=== PATIENT | female | born 1995 | race Caucasian/White ===

== ENCOUNTER 2017-01-22 14:06 | Emergency (ER) | payer OTHER | END 2017-01-22 15:04 | disposition home or self-care (01) | LOC: SCSER 14:06 | DX: O9A.212 Injury, poisoning and certain other consequences of external causes complicating pregnancy, second trimester (principal); T78.40XA Allergy, unspecified, initial encounter; Z3A.20 20 weeks gestation of pregnancy ==

== ENCOUNTER 2017-04-28 11:28 | Day surgery (SDC) | payer OTHER ==
[2017-04-28 12:07] VITALS: BMI 26.9
[2017-04-28] MEDS ORDERED: Lactated Ringer's 1,000 ML IV SCH (13:45)
[2017-04-28 13:52] LABS: FFN Internal QC Analyzer PASS (PASS); FFN Internal QC Cassette PASS (PASS); Fetal Fibronectin Negative (Negative)
[2017-04-28] MEDS ORDERED: NIFEdipine 10 MG CAP ONE (13:53)
[2017-04-28] MEDS: NIFEdipine 10 MG CAP PO SCH ×3 (13:54→14:54)
[2017-04-28] MEDS ORDERED: NIFEdipine 10 MG CAP PO PRN (15:00)
--- NOTE | 2017-04-28 15:56 | PRG ---
DATE OF SERVICE: 04/28/2017 TIME OF SERVICE 15:30 PRESENTING COMPLAINT: Small amount of vaginal bleeding at 34 weeks gestation. HISTORY OF PRESENT ILLNESS: Ms. Matthew is a 21-year-old primigravida at [address] weeks [address] Lydia Adorno. Antepartum record is not available. She reports an uncomplicated . She reports that she has had a small amount of pinkish discharge on tissue. She denies passage of clot, rupture of membranes, she reports an active fetus. She reports she feels occasional cramping. OBSTETRIC AND GYNECOLOGICAL HISTORY: The patient reports uncomplicated obstetric and gynecological h istory. PAST MEDICAL HISTORY: None. PAST SURGICAL HISTORY: None. ALLERGIES: Denies. MEDICATIONS: vitamins. SOCIAL HISTORY: Denies tobacco, alcohol, or drug abuse. FAMILY HISTORY: Noncontributory. REVIEW OF SYSTEMS: Noncontributory. PHYSICAL EXAMINATION: GENERAL: White female, in no acute distress. VITAL SIGNS: 5 feet 3, 152, BMI 27, blood pressure 110/64, pulse 78, respirations 18, temperature 98 .6. HEENT: Within normal limits. LUNGS: Clear to auscultation bilaterally. HEART: Regular rhythm. ABDOMEN: Soft and nontender. She really does not have palpable contractions. Her FHTs are 120s to 130s. PELVIC: Vulva is without lesions. Vagina had a small amount of brownish discharge consistent with o ld blood. fibronectin was collected. Cervix is closed, long, and high. EXTREMITIES: Without clubbing, cyanosis or edema. LABORATORY STUDIES: fibronectin was negative. HEART RATE MONITORING: heart rate monitoring was carried out over approximately 2 hour p eriod. The patient was noted to have uterine irritability q.2-5 minutes throughout. She was given p .o., IV hydration and nifedipine per protocol. Her contractions spaced out to approximately q.6 eder siddharth and were not appreciated by the patient and did not result in cervical change. heart rate tracing was category 1 with positive accelerations, no decelerations noted. IMPRESSION: Uterine irritability, no evidence of abruption with a negative fibronectin and a r eassuring heart rate tracing at 34 weeks. PLAN: Discharge home, p.o. hydration. ER precautions. Keep scheduled followup with Dr. Adorno.
== END 2017-04-28 15:36 | disposition home health service (06) ==
LOC: L&D/OP 11:28
PROVIDERS: ATTEND Family Medicine
DX: O26.853 Spotting complicating pregnancy, third trimester (principal); Z79.899 Other long term (current) drug therapy; Z3A.34 34 weeks gestation of pregnancy
CPT/HCPCS: 82731

== ENCOUNTER 2017-06-11 04:26 | Day surgery (SDC) | payer OTHER ==
[2017-06-11 05:03] VITALS: BP 119/79; TEMP 98.6; BMI 28.3
--- NOTE | 2017-06-11 05:21 | PDOC.LDHP ---
Labor and Delivery H&P Chief complaint: contractions HPI: 21 y/o G1 at 40w4d, patient of Dr. Adorno, presents with contractions every 3-5 mins since last night. Denies VB, LOF, or decreased FM. ROS neg for HEENT, CV, pulm, GI, , neuro, psych, skin, musculoskeletal, or constitutional symptoms other than mentioned above. OB History Details: First , uncomplicated Current complications: none Past Medical History: None Current medications: pre- vitamins Previous surgical history: none Allergies/Adverse Reactions: Allergies Allergy/AdvReac Type Severity Reaction Status Date / Time No Known Allergies Allergy Verified 06/11/17 04:55 Social history: none - Physical Exam Vital signs reviewed and normal: yes General: NAD, resting Lungs: nonlabored breathing Abdomen: gravid Extremeties: no edema FHT: category 1 (120s, mod variability, + accels, no decels) [place] contractions every: 5 - Vaginal Exam cm dilated: 2 Effacement: 75% Station: -2 - OB Labs GBS: positive - Assessment 21 y/o G1 at 40w4d with no e/o active labor. status reassuring with reactive NST. - Plan -: D/c home with precautions. Advised to keep all appointments.
== END 2017-06-11 05:40 | disposition home or self-care (01) ==
LOC: L&D/OP 04:26
PROVIDERS: ATTEND Neurological Surgery
DX: O47.1 False labor at or after 37 completed weeks of gestation (principal); Z3A.40 40 weeks gestation of pregnancy; Z79.899 Other long term (current) drug therapy
CPT/HCPCS: 99282

== ENCOUNTER 2017-06-11 18:17 | Inpatient (IN) | payer OTHER ==
[2017-06-11 19:16] VITALS: BMI 28.1
[2017-06-11] MEDS ORDERED: Ondansetron HCl/PF 4 MG/2 ML Vial IVP PRN (21:43)
[2017-06-11] MEDS ORDERED: Promethazine HCl 25 MG/ML VIAL IM PRN (21:43)
[2017-06-11] MEDS ORDERED: Lactated Ringer's 1,000 ML IV PRN (21:43)
[2017-06-11] MEDS ORDERED: Ibuprofen 800 MG TAB PO PRN (21:45)
[2017-06-11] MEDS ORDERED: Penicillin G Potassium 5 MILL.UNITS in Sodium Chloride 0.9% 100 ML IVPB SCH (21:45)
[2017-06-11] MEDS ORDERED: Methylergonovine 0.2 MG/ML VIAL IM PRN (21:45)
[2017-06-11] MEDS ORDERED: Misoprostol 200 MCG TAB RC PRN (21:45)
[2017-06-11] MEDS ORDERED: Carboprost 250 MCG/ML AMP IM PRN (21:45)
[2017-06-11] MEDS ORDERED: Diphenoxylate HCl/Atropine Tablet PO PRN ×2 (21:45)
[2017-06-11] MEDS ORDERED: HYDROcodone/Acetaminophen 5/325 mg Tablet PO PRN (21:45)
[2017-06-11] MEDS ORDERED: LR 500 ML/Oxytocin 10 units 500 ML IV SCH ×2 (21:45)
[2017-06-11] MEDS ORDERED: LR / Pitocin 40 units/1000 ml 40 UNITS/1,000 ML BAG IV SCH (21:45)
[2017-06-11] MEDS ORDERED: Lidocaine 1% (PF) 30 ML VIAL SC PRN (21:45)
[2017-06-11 23:09] LABS: Mean Corpuscular HGB CONC 28.8 g/dL (32.0-36.0); Mean Corpuscular Hemoglobin 25.2 pg (27.0-31.0); Mean Corpuscular Volume 87.2 fl (81.0-99.0); Mean Platelet Volume 8.6 fL (7.4-10.4); Platelet Count 233 thou/uL (130-400); RBC Distribution Width 12.7 % (11.5-14.5); Red Blood Cell (RBC) Count 4.37 mill/uL (4.20-5.40); White Blood Cell (WBC) Count 19.6 thou/uL (4.8-10.8)
[2017-06-11 23:47] LABS: Syphilis Antibody Nonreactive (Nonreactive); Syphilis Antibody Index 0.07 S/CO (<1.00 Non-Reactive)
[2017-06-11 23:48] LABS: HBSAg Index 0.51 S/CO (0-0.99); Hep B Surf Ag Non-Reactive S/CO (NonReactive)
[2017-06-12] MEDS ORDERED: Penicillin G 2.5 MILL.units 2.5 MILL.UNITS in Premix Bag 1 BAG IVPB SCH (01:00)
--- NOTE | 2017-06-12 04:59 | OP ---
DATE OF DELIVERY: 06/12/2017 PREOPERATIVE DIAGNOSIS: Term intrauterine in labor. POSTOPERATIVE DIAGNOSIS: Term intrauterine in labor. PROCEDURE PERFORMED: Normal spontaneous vaginal delivery. SURGEON: Lydia Adorno M.D. ANESTHESIA: Local. ESTIMATED BLOOD LOSS: 200 mL. BRIEF DELIVERY SUMMARY: This is a 21-year-old G1, now P1 who presented in active labor. She progres sed well to complete and pushing. She delivered a live male infant, head OA. Mouth and nares were b ulb suctioned at the perineum. There was no nuchal cord. Shoulders and body easily followed and the was placed on mother's abdomen. Umbilical cord blood was collected and sent for analysis. P ian delivered spontaneously and intact with a 3-vessel umbilical cord. Uterine fundus was firm f ollowing evacuation of the placenta. There was a second degree perineal laceration, which was repair ed in standard running fashion using 2-0 Vicryl suture under local anesthesia with excellent hemostas is. Mom and baby were left with the nurse in excellent condition attempting to breast feed.
[2017-06-12] MEDS ORDERED: LR / Pitocin 40 units/1000 ml 1,000 ML IV SCH (08:22)
[2017-06-12] MEDS ORDERED: Ferrous Sulfate 325 MG TAB PO SCH ×2 (08:22→08:45)
[2017-06-12] MEDS ORDERED: Bisacodyl 10 MG SUPP PR PRN (08:22)
[2017-06-12] MEDS ORDERED: Adacel (T-DAP) 0.5 ML VIAL IM ONE (08:22)
[2017-06-12] MEDS ORDERED: HYDROcodone/Acetaminophen 5/325 mg Tablet PO PRN (08:22)
[2017-06-12] MEDS ORDERED: Lanolin Ointment 7 GM TUBE TOP PRN (08:22)
[2017-06-12] MEDS ORDERED: Benzocaine/Menthol 20-0.5% 60 ML CAN TOP PRN (08:22)
[2017-06-12] MEDS ORDERED: Milk Of Magnesia 30 ML UDCUP PO PRN (08:22)
[2017-06-12] MEDS: Ibuprofen 800 MG TAB PO SCH ×2 (10:00→18:20)
[2017-06-12] MEDS: Docusate Calcium (SURFAK) 240 MG CAP PO SCH ×2 (10:00→21:17)
[2017-06-12] MEDS: Ferrous Sulfate 325 MG TAB PO SCH (16:18)
[2017-06-13 00:52] VITALS: TEMP 99.1
[2017-06-13] MEDS: Ibuprofen 800 MG TAB PO SCH ×3 (00:53→17:29)
[2017-06-13] MEDS: Ferrous Sulfate 325 MG TAB PO SCH ×2 (07:24→16:54)
[2017-06-13 08:16] VITALS: BP 114/55
[2017-06-13] MEDS: Docusate Calcium (SURFAK) 240 MG CAP PO SCH (08:50)
--- NOTE | 2017-06-13 14:37 | PDOC.PP ---
Post Progress Note Post Day #: 1 Subjective: No c/o. Ambulating. well. Toel[place] PO. PO intake tolerated: yes Flatus: yes Ambulation: yes Vital Signs (12 hours) Temp Pulse Resp BP Pulse Ox 06/13/17 12:00 99.1 F 85 18 06/13/17 08:00 99.1 F 85 18 06/13/17 07:50 98.5 F 96 20 114/55 L 98 Weight Weight 159 lb - Physical Examination General: NAD Cardiovascular: no m/r/g, RRR Respiratory: clear to auscultation bilaterally, non-labored breathing Abdominal: + bowel sounds, lochia, no distention, appropriately TTP Psychiatric: A&Ox3, normal affect Result Diagrams: 06/11/17 23:03 Additional Labs: Post Labs Hep Bs Antigen Non-Reactive S/CO (NonReactive) 06/11/17 23:03 (1) Vaginal delivery Code(s): O80 - ENCOUNTER FOR FULL-TERM UNCOMPLICATED DELIVERY Status: Acute - Assessment/Plan PPD #1 Doing well Routine care D/C home
== END 2017-06-13 17:25 | disposition home or self-care (01) | DRG 775 ==
LOC: L&D/OP 18:17 → L&D-LIB 21:19 → 3SE 06-12 08:33
PROVIDERS: ADMIT Family Medicine; ATTEND Family Medicine
PROC: 10E0XZZ Delivery of Products of Conception, External Approach (ICD-10-PCS; principal; 2017-06-12)
PROC: 0KQM0ZZ Repair Perineum Muscle, Open Approach (ICD-10-PCS; 2017-06-12)
DX: O99.824 Streptococcus B carrier state complicating childbirth (principal); Z37.0 Single live birth; O70.1 Second degree perineal laceration during delivery; Z3A.40 40 weeks gestation of pregnancy; Z87.891 Personal history of nicotine dependence
CPT/HCPCS: 85027; 86780; 87340; 99282; 99285; J2001; J2540; J7050